=== PATIENT | born 1950 | race Caucasian/White ===

== ENCOUNTER → 2024-12-01 11:30 | Outpatient (BNVA) | payer MEDICARE, OTHER, SELFPAY | PROVIDERS: Referring Provider Family Medicine; Visit Provider Internal Medicine | DX: E03.9 Hypothyroidism, unspecified (principal); R53.83 Other fatigue; R63.5 Abnormal weight gain; Z72.820 Sleep deprivation | CPT/HCPCS: 36415; 84305; 84439; 84443; 99204 ==